=== PATIENT | male | born 1995 | race Caucasian/White ===

== ENCOUNTER 2016-06-21 09:17 | Day surgery (SDC) | payer BC ==
[2016-06-17 15:46] LABS: HEMATOCRIT 45.6 % (40.0-51.0)
[2016-06-17 16:11] LABS: A/G RATIO 1.6 (0.7-1.9); ALBUMIN 4.8 G/DL (3.5-5.0); ALKALINE PHOSPHATASE 62 U/L (45-117); BUN (BLOOD UREA NITROGEN) 17 MG/DL (6-23); CALCIUM, SERUM 9.2 MG/DL (8.5-10.4); CHLORIDE, SERUM 103 MMOL/L (96-112); CO2 (CARBON DIOXIDE) 30 MMOL/L (24-34); CREATININE 0.91 MG/DL (0.70-1.30); GFR AFRICAN AMERICAN 139 ML/MIN (>=60); GFR NON AFRICAN AMERICAN 120 ML/MIN (>=60); GLUCOSE, SERUM 71 MG/DL (60-99); SGOT(AST) 15 U/L (5-40); SGPT(ALT) 27 U/L (5-65); SODIUM, SERUM 140 MMOL/L (135-148); TOTAL BILIRUBIN 0.7 MG/DL (0-1.2); TOTAL PROTEIN 7.8 G/DL (6.0-8.5)
--- NOTE | ~2016-06-21 | OP ---
Record Of Operation [facility] [address] [place]. [address] NAME: ANGELO ARAUJO : 89 STATUS : [facility]#: [id number] AGE: 20 ADM/REG DATE : 06/21/16 MR#: [id number] REPORT SERV DATE: 06/24/16 DICTATED BY: VIKTOR YUN DATE: 06/24/16 REPORT STATUS : Draft TRANSCRIBED BY: MODL DATE: 06/24/16 DATE OF PROCEDURE: 06/21/2016 PREOPERATIVE DIAGNOSIS: Left inguinal hernia. POSTOPERATIVE DIAGNOSIS: Left inguinal hernia with right inguinal hernia. PROCEDURE: Laparoscopic reduction and mesh patch repair of bilateral inguinal hernia. SURGEON: Viktor Yun M.D. DESCRIPTION OF OPERATIVE PROCEDURE: The patient was brought to operating suite, placed in supine position, underwent satisfactory general endotracheal anesthesia without incident. Following this, the skin of the abdomen was scrubbed, prepped, and draped in usual sterile fashion. Marcaine 0.5% with epinephrine was utilized as supplemental local anesthesia at all intended trocar sites. Initially, an infraumbilical incision was performed dissecting through skin and subcutaneous tissue through the umbilical fascia. Inferolateral retraction on the left exposed the left anterior rectus sheath. This was incised longitudinally. The medial aspect of the rectus muscle was retracted laterally exposing the left posterior rectus sheath. A preperitoneal dissection balloon was inserted posterior to the left rectus sheath. Under direct camera visualization, the insufflation was performed creating a preperitoneal dissection bilaterally. This balloon was then removed and replaced with a structural balloon, and CO2 was insufflated into the preperitoneal space for pressures of 15 mmHg throughout the case. After adequate insufflation pressure was achieved, two additional 5 mm trocars were placed in the infraumbilical midline under direct visualization. Completion of the preperitoneal dissection was performed bilaterally revealing bilateral indirect inguinal hernia. The Hesselbach's triangle of the inferior epigastric vessels, internal ring, and cord structures were skeletonized bilaterally. The hernia were repaired using Bard 3DMax polypropylene mesh, size large, oriented left and right. The mesh was placed with local anesthesia, rolled up, and placed in the preperitoneal space. It was plicated in position over Hesselbach's triangle of the inferior epigastric vessels and allowing the cord structures to egress beneath the lower edge of the mesh. Multiple firings of the 5-mm Helical Tacker were utilized to secure the mesh in position. Hemostasis was assured. The preperitoneal space was allowed to collapse and CO2 was milked from the preperitoneal space. The left anterior rectus sheath was closed with figure-of- eight suture of 0 Vicryl. Subcutaneous tissue was closed at all sites with interrupted 3-0 Vicryl, and running subcuticular stitch of 4-0 Vicryl for the skin. Dermabond and skin adhesive were placed. The patient tolerated the procedure well. He was returned to PACU in stable condition. At Record Of Operation [address] [address] NAME: ANGELO ARAUJO : 89 STATUS : [facility]#: [id number] AGE: 20 ADM/REG DATE : 06/21/16 MR#: [id number] REPORT SERV DATE: 06/24/16 DICTATED BY: VIKTOR YUN DATE: 06/24/16 REPORT STATUS : Draft TRANSCRIBED BY: SHAUN DATE: 06/24/16 the termination of the procedure, sponge, needle, lap, and instrument counts were correct x3. ESTIMATED BLOOD LOSS: Less than 5 mL. ALFREDO/SHAUN Viktor Yun M.D. / [id number] CC: Quang Roberts DO
[~2016-06-21 09:17] MED LIST: ACET500CAP PO; ADVIL PO; CLARIT10 PO
== END 2016-06-21 16:58 | disposition home or self-care (01) ==
LOC: SDC 09:17
PROVIDERS: Specialist
PROC: 0YUA4JZ Supplement Bilateral Inguinal Region with Synthetic Substitute, Percutaneous Endoscopic Approach (ICD-10-PCS; principal; 2016-06-21 10:15)
DX: K40.20 Bilateral inguinal hernia, without obstruction or gangrene, not specified as recurrent (principal); F90.9 Attention-deficit hyperactivity disorder, unspecified type; Z87.891 Personal history of nicotine dependence; Z90.89 Acquired absence of other organs; Z98.890 Other specified postprocedural states
CPT/HCPCS: 80053; 85014; 85018; A9270-GY; C1726; C1727; C1781; J0690; J1170; J1885; J2250; J2405; J2710; J3010